=== PATIENT | female | born 1955 | race Caucasian/White ===

== ENCOUNTER 2021-06-14 16:04 | Inpatient (IN) | payer OTHER ==
[~2021-06-14] VITALS: Ht 157.5 cm; Wt 72.5 kg
[~2021-06-14 16:04] MED LIST: ASPIRIN EC81 MG PO; COREG25 MG PO; DALIRESP 500500 MCG PO; DIGITEK125 MCG PO; HYDROCODON-ACE1 EAC4 PO; IMDUR ER TAB 3030 MG PO; LEVOTHYROXINE50 MCG PO; LEXAPRO10 MG PO; LIDOCAINE-PRILO30 GM TP; MEDROL4 MG PO; MYCOSTATIN100000 UTS PO; PREDNISONE 10 M10 MG PO; PRENATABS FA T1 EACH PO; PREVACID30 MG PO; RANEXA500 MG PO; SPIRIVA18 MCG INH; SYMBICORT 160-1 INHA INH; SYMBICORT 16010.2 GM INH; XANAX0.25 MG PO; ZOCOR80 MG PO
[2021-06-14 16:54] LABS: HEMOGLOBIN 11.3 gm/dl (12.3-15.3); RED BLOOD COUNT 4.08 M/UL (4.00-5.10)
[2021-06-14 17:23] LABS: BUN/CREATININE RATIO 15 (0-10)
[2021-06-15] MEDS ORDERED: ISOSORBIDE MONO30 MG PO (00:42)
[2021-06-15] MEDS ORDERED: PLAVIX 75 MG TA75 MG PO (00:44)
[2021-06-15 04:20] LABS: HEMOGLOBIN 10.2 gm/dl (12.3-15.3); RED BLOOD COUNT 3.72 M/UL (4.00-5.10); WHITE BLOOD COUNT 3.3 K/UL (4.5-11.0)
[2021-06-15 04:56] LABS: BUN/CREATININE RATIO 17 (0-10)
[2021-06-16 04:59] LABS: HEMOGLOBIN 9.6 gm/dl (12.3-15.3); RED BLOOD COUNT 3.6 M/UL (4.00-5.10)
[2021-06-16 05:01] LABS: WHITE BLOOD COUNT 5.6 K/UL (4.5-11.0)
[2021-06-16 05:33] LABS: BUN/CREATININE RATIO 23 (0-10)
[2021-06-17 03:37] LABS: BUN/CREATININE RATIO 25 (0-10)
[2021-06-17 03:43] LABS: WHITE BLOOD COUNT 3.3 K/UL (4.5-11.0)
[2021-06-17 03:44] LABS: RED BLOOD COUNT 3.73 M/UL (4.00-5.10)
[2021-06-17] MEDS ORDERED: MEDROL4 MG PO (08:32)
== END 2021-06-17 15:33 | disposition home or self-care (01) | DRG 189 ==
LOC: ER1 16:04 → CDU 21:42 → MED SURG 4 06-16 15:17
PROVIDERS: Internal Medicine; Physician Assistant; ADMIT Internal Medicine
PROC: 5A09357 Assistance with Respiratory Ventilation, Less than 24 Consecutive Hours, Continuous Positive Airway Pressure (ICD-10-PCS; principal; 2021-06-14)
DX: J96.21 Acute and chronic respiratory failure with hypoxia (principal); G93.41 Metabolic encephalopathy; J44.1 Chronic obstructive pulmonary disease with (acute) exacerbation; C34.90 Malignant neoplasm of unspecified part of unspecified bronchus or lung; Z20.822 Contact with and (suspected) exposure to COVID-19; C79.72 Secondary malignant neoplasm of left adrenal gland; C79.71 Secondary malignant neoplasm of right adrenal gland; E87.4 Mixed disorder of acid-base balance; E27.40 Unspecified adrenocortical insufficiency; D63.8 Anemia in other chronic diseases classified elsewhere; I25.10 Atherosclerotic heart disease of native coronary artery without angina pectoris; E03.9 Hypothyroidism, unspecified; J96.22 Acute and chronic respiratory failure with hypercapnia; E83.39 Other disorders of phosphorus metabolism; T50.995A Adverse effect of other drugs, medicaments and biological substances, initial encounter; I10 Essential (primary) hypertension; E78.5 Hyperlipidemia, unspecified; Z79.01 Long term (current) use of anticoagulants; Z79.82 Long term (current) use of aspirin; Z95.1 Presence of aortocoronary bypass graft; Z88.0 Allergy status to penicillin; Z87.891 Personal history of nicotine dependence
CPT/HCPCS: 36415; 36600; 70450; 71045; 71275; 80048; 80053; 81001; 82140; 82550; 82553; 82607; 82803; 83540; 83550; 83605; 83735; 83880; 84100; 84439; 84443; 84484; 85025; 85027; 85652; 86140; 87040; 94640; 94660; 94664; 94760; 99285; G0378; J1030; J1644; J1956; J2920; J2930; U0002